=== PATIENT | male | born 1990 | race American Indian/Alaskan Native ===

== ENCOUNTER 2021-05-14 00:23 | Emergency (ER) | payer SELFPAY ==
--- NOTE | 2021-05-14 10:06 | Emergency Department Report ---
ED General Adult HPI - General Chief complaint: Hyperglycemia Stated complaint: HYPERGLYCEMIA/COVID SYMPTOMS PUI?: Yes Time Seen by Provider: 05/14/21 09:02 Source: patient, EMS Mode of arrival: Ambulatory Limitations: No Limitations - History of Present Illness Initial comments: Chief complaint: Fatigue HPI: This is a 31-year-old male with new diagnosis of type 2 diabetes outside hospital earlier this year. Has not had access to health care or medication due to lack of insurance. Does not have a primary physician. Has had fatigue fever chills body aches. No sick contacts. Not vaccinated against COVID-19. Has a loss of taste and smell. -: Gradual, days(s) (Several days) Consistency: constant Improves with: none Worsens with: none Associated Symptoms: fever/chills, malaise - Related Data Previous Rx's Medication Instructions Recorded Last Taken Type metFORMIN [Glucophage] 500 mg PO BID #60 tablet 05/14/21 Unknown Rx Allergies Allergy/AdvReac Type Severity Reaction Status Date / Time No Known Allergies Allergy Verified 05/14/21 08:50 ED Review of Systems ROS: Stated complaint: HYPERGLYCEMIA/COVID SYMPTOMS Other details as noted in HPI Comment: All other systems reviewed and negative Constitutional: chills, fever, malaise Respiratory: cough Gastrointestinal: nausea ED Past Medical Hx - Past Medical History Previous Medical History?: Yes Hx Diabetes: Yes - Surgical History Past Surgical History?: No - Social History Smoking Status: Never Smoker Substance Use Type: None - Medications Home Medications: Home Medications Medication Instructions Recorded Confirmed Last Taken Type metFORMIN [Glucophage] 500 mg PO BID #60 tablet 05/14/21 Unknown Rx ED Physical Exam - General Limitations: No Limitations General appearance: alert, in no apparent distress - Head Head exam: Present: atraumatic, normocephalic - Eye Eye exam: Present: normal appearance - ENT ENT exam: Present: mucous membranes moist - Neck Neck exam: Present: normal inspection, full ROM - Respiratory Respiratory exam: Present: normal lung sounds bilaterally. Absent: respiratory distress, wheezes, rales, rhonchi - Cardiovascular Cardiovascular Exam: Present: regular rate, normal rhythm. Absent: systolic m urmur, diastolic murmur, rubs, gallop - GI/Abdominal GI/Abdominal exam: Present: soft, normal bowel sounds - Rectal Rectal exam: Present: deferred - Extremities Exam Extremities exam: Present: normal inspection - Back Exam Back exam: Present: normal inspection - Neurological Exam Neurological exam: Present: alert, oriented X3 - Psychiatric Psychiatric exam: Present: normal affect, normal mood - Skin Skin exam: Present: warm, dry, intact, normal color. Absent: rash ED Course Vital Signs 05/14/21 00:32 Temperature 98.9 F Pulse Rate 94 H Respiratory 18 Rate Blood Pressure 108/70 [Right] O2 Sat by Pulse 98 Oximetry ED Medical Decision Making - Medical Decision Making Acute hyperglycemia due to diabetes mellitus: Patient appears well without symptoms or signs of DKA. Prescribed Metformin. Given referral to outpatient medicine physician and [facility]. Suspected Covid normal vital signs recommended outpatient testing. Critical care attestation.: If time is entered above; I have spent that time in minutes in the direct care of this critically ill patient, excluding procedure time. ED Disposition Clinical Impression: Diabetes mellitus, Suspected COVID-19 virus infection Disposition: HOME / SELF CARE / HOMELESS Is pt being admited?: No Does the pt Need Aspirin: No Condition: Stable Instructions: Diabetes Mellitus Type 2 in Adults (ED), Type 2 Diabetes Mellbrent us, Diagnosis, Adult Prescriptions: metFORMIN [Glucophage] 500 mg PO BID #60 tablet Referrals: QASIM LUCERO MD [Staff Physician] - 3-5 Days [facility] [Outside] - 3-5 Days [facility] [Outside] - 3-5 Days
[2021-05-14 10:31] VITALS: BP 148/78
== END 2021-05-14 10:32 | disposition home or self-care (01) ==
LOC: ED 00:23
DX: E11.9 Type 2 diabetes mellitus without complications (principal); R53.83 Other fatigue; R50.9 Fever, unspecified; M79.10 Myalgia, unspecified site; Z20.822 Contact with and (suspected) exposure to COVID-19
CPT/HCPCS: 82962; 99283